=== PATIENT | male | born 1975 | race Asian ===

== ENCOUNTER 2024-01-02 10:01 | Day surgery (SDC) | payer BC ==
[2024-01-01 10:05] VITALS: BMI 23.3
[2024-01-02] MEDS ORDERED: MIDAZOLAM HCL 2 MG/2 ML SINGLE DOSE VIAL ONE ×2 (11:30→13:05)
[2024-01-02] MEDS ORDERED: PROPOFOL 20 ML ONE ×5 (11:30→14:23)
[2024-01-02] MEDS ORDERED: ROPIVACAINE HCL 0.5% 30ML VIAL ONE (11:35)
[2024-01-02] MEDS ORDERED: LIDOCAINE HCL 1%, 10 MG/ML (20ML VIAL) ONE (12:00)
[2024-01-02] MEDS: LIDOCAINE HCL 1%, 10 MG/ML (20ML VIAL) NR ONE (12:13)
[2024-01-02] MEDS ORDERED: KETOROLAC TROMETHAMINE 30 MG/1 ML VIAL ONE (14:43)
[2024-01-02] MEDS ORDERED: oxyCODONE HCL 5 MG TABLET PO PRN ×2 (15:07)
[2024-01-02] MEDS ORDERED: ONDANSETRON 4 MG/2 ML VIAL IVPUSH PRN (15:07)
[2024-01-02] MEDS ORDERED: LACTATED RINGERS SOLUTION 1,000 ML IV SCH (15:15)
[2024-01-02 17:43] VITALS: RESP 18; TEMP 97.1
[2024-01-02 17:51] VITALS: BP 130/82; PULSE 81
== END 2024-01-02 17:20 | disposition home or self-care (01) ==
LOC: FASU 10:01
PROVIDERS: ATTEND Podiatrist Foot & Ankle Surgery
PROC: 0LQP0ZZ Repair Left Lower Leg Tendon, Open Approach (ICD-10-PCS; 2024-01-02)
PROC: 0QSM04Z Reposition Left Tarsal with Internal Fixation Device, Open Approach (ICD-10-PCS; principal; 2024-01-02 12:36)
DX: S92.062A Displaced intraarticular fracture of left calcaneus, initial encounter for closed fracture (principal); W17.89XA Other fall from one level to another, initial encounter; Y93.9 Activity, unspecified; Y92.9 Unspecified place or not applicable
CPT/HCPCS: 27658; 28415; C1713; 73630-TC-LT; 94760